=== PATIENT | female | born 1990 | race Caucasian/White ===

== ENCOUNTER 2016-09-22 09:33 | Emergency (ER) | payer MEDICAID, OTHER ==
[2016-09-22 09:48] VITALS: TEMP 98.4
[2016-09-22] MEDS ORDERED: NS 1,000 ML IV ONE (10:03)
[2016-09-22 10:08] LABS: % IMMATURE GRANULYOCYTES 0.2 % (0.0-1.1); ABSOLUTE IMMATURE GRANULOCYTES 0.01 10^3/uL (0.00-0.10); ADD DIFF? NO; ADD MORPH? NO; ADD SCAN? NO; ATYPICAL LYMPHOCYTE FLAG 10 (0-99); FRAGMENT RBC FLAG 0 (0-99); HEMATOCRIT 50.7 % (38.0-47.0); HEMOGLOBIN 17.6 g/dL (12.6-16.3); LEFT SHIFT FLG 0 (0-99); LIPEMIA HEMOLYSIS FLAG 90 (0-99); MEAN CELL HEMOGLOBIN 31.1 pg (27.9-34.1); MEAN CELL HEMOGLOBIN CONCENTR. 34.7 g/dL (32.4-36.7); MEAN CELL VOLUME 89.6 fL (81.5-99.8); MEAN PLATELET VOLUME 9.8 fL (8.7-11.7); PLATELET CLUMPS FLAG 0 (0-99); PLATELET COUNT 240 10^3/uL (150-400); RED BLOOD CELL COUNT 5.66 10^6/uL (4.18-5.33); RED CELL DISTRIBUTION WIDTH 12.2 % (11.5-15.2)
[2016-09-22] MEDS ORDERED: LORazepam 2 MG/ML INJ IVP ONE (10:12)
--- NOTE | 2016-09-22 10:17 | CPEKG ---
Heart Rate: 80 RR Interval: 750 P-R Interval: 112 QRSD Interval: 98 QT Interval: 400 QTC Interval: 462 P Bradshaw: 59 QRS Bradshaw: 89 T Wave Bradshaw: 42 EKG Severity - NORMAL ECG - EKG Impression: SINUS RHYTHM Electronically Signed By: Kevin Kennedy 26-Sep-2016 09:06:07
[2016-09-22 10:23] LABS: ANION GAP 15 mEq/L (8-16); CALCIUM 9.7 mg/dL (8.5-10.4); CARBON DIOXIDE 23 mEq/l (22-31); CHLORIDE 103 mEq/L (97-110); CREATININE 0.8 mg/dL (0.6-1.0); GLOMERULAR FILTRATION RATE > 60; GLUCOSE 98 mg/dL (70-100); POTASSIUM 3.7 mEq/L (3.5-5.2); SODIUM 141 mEq/L (134-144)
--- NOTE | 2016-09-22 10:31 | UCPHY ---
H & P Time Seen by Provider: 09/22/16 10:03 Patient Type: New HPI/ROS: CHIEF COMPLAINT: Near-syncope HPI: The patient is a 26-year-old female who relates a past medical history of hypoglycemia diagnosed by data base administrator. Patient states that over the last several weeks she has had intermittent episodes of shakiness, feeling like she is going to pass out, pressure in her chest, anxiety, emotional changes and sweaty palms. Initially these occurred in the morning and the patient thought it was secondary to hypoglycemia so she has been eating more frequently. Her mother states that the patient has been having severe anxiety throughout the day. The patient agrees that her symptoms are now essentially constant for the last several days. She reports being under stress recently with recent break- up with her boyfriend and recent move back to [place]. The patient states she had 1 episode of feeling like she was going to pass out, but never actually lost consciousness. REVIEW OF SYSTEMS: Aside from elements discussed in the HPI, a comprehensive 10-point review of systems was reviewed and is negative. PMH: None known. SOCIAL HISTORY: Single. Denies drug or alcohol abuse. FAMILY HISTORY: Reviewed, noncontributory PHYSICAL EXAM: General:Patient is alert, in no acute distress. Patient appears anxious. ENT:Eyes are normal to inspection. ENT inspection normal. Neck: Normal inspection. Full range of motion. Respiratory:No respiratory distress. Breath sounds normal bilaterally. Cardiovascular: Regular rate and rhythm. Strong peripheral pulses. Normal cap refill. Abdomen:The abdomen is nontender to palpation. There are no peritoneal signs. There are normal bowel sounds. Back: Normal to inspection. No tenderness to palpation. Skin: Normal color. No rash. Warm and dry. Extremities: Normal appearance. Full range of motion. Neuro: Oriented x3. Normal motor function. Normal sensory function. Smoking Status: Never smoked Constitutional: Initial Vital Signs Temperature (C) 36.9 C 09/22/16 09:46 Heart Rate 118 H 09/22/16 09:46 Respiratory Rate 20 09/22/16 09:46 Blood Pressure 124/94 H 09/22/16 09:46 O2 Sat (%) 100 09/22/16 09:46 O2 Delivery Mode Room Air Allergies/Adverse Reactions: No Known Allergies Allergy (Verified 04/12/12 21:22) Home Medications: Medication Instructions Recorded LORazepam [Ativan (*)] 0.5 - 1 mg PO Q8 PRN #20 tab 09/22/16 MDM/Departure - MDM Medications Given: Discontinued Medications Sodium Chloride (Ns) 1,000 mls @ 0 mls/hr IV ONCE ONE PRN Reason: Wide Open Stop: 09/22/16 10:04 Last Admin: 09/22/16 10:21 Dose: 1,000 mls Lorazepam (Ativan Injection) 0.5 mg IVP EDNOW ONE Stop: 09/22/16 10:13 Last Admin: 09/22/16 10:27 Dose: 0.5 mg ED Course/Re-evaluation: This patient presents with multitude of symptoms that are consistent with anxiety disorder/depression. The patient is very concerned that her symptoms are related to either diabetes or hypoglycemia. Her workup shows no sign of either and I explained this to her and her mother who feels significantly relieved. I see no evidence of cardiac abnormality which would be very unusual in this young healthy woman. She is not . Given negative workup, I think the patient's symptoms are likely secondary to a mental health disorder, likely panic disorder or anxiety or some combination. The patient was given 0.5 mg IV Ativan which greatly relieved her symptoms here in the Urgent Care, which further reinforces the likelihood that this is related to anxiety. I will start the patient on a small amount of Ativan to use as a rescue medication until she can follow up with her primary care physician. The patient is not endorsing any suicidal or homicidal thoughts. - Depart Disposition: Home, Routine, Self-Care Clinical Impression: Anxiety Condition: Good Instructions: Anxiety (ED) Prescriptions: LORazepam [Ativan (*)] 0.5 - 1 mg PO Q8 PRN #20 tab PRN Reason: Anxiety Referrals: Linnette Lewis MD [Primary Care Provider] - As per Instructions - PQRS PQRS Measurement: 134: Depression screening and followup, PRIME MD-PHQ2 (12 years and older) Over the last 2 weeks, how often have you been bothered by any of the following problems? 1. Feeling down, depressed, or hopeless? 2. Little interest or pleasure in doing things? Patient answered yes to both 1 and 2 130: Documentation of medications. Reviewed all patient medications, doses, route and frequency. 226: Do you smoke? No. 51: 18 years old and older with diagnosis of COPD, spirometry performance. Spirometry not performed; equipment not available. Patient has no history of COPD 52: 18 years old and older with COPD and symptoms of COPD or FEV1<60% predicted prescribed a B Agonist. Spirometry not performed; equipment not available.
[2016-09-22 11:11] VITALS: BP 123/88; PULSE 79; RESP 18; O2SAT 98
== END 2016-09-22 11:06 | disposition home or self-care (01) ==
LOC: CED 09:33
DX: F41.9 Anxiety disorder, unspecified (principal); R55 Syncope and collapse; R07.89 Other chest pain
CPT/HCPCS: 80048-PO; 84443-PO; 84703-PO; 85025-PO; 96361-PO; 96374-PO; 96376-PO; G0463-PO; J2060